=== PATIENT | female | born 1950 | race Caucasian/White ===

== ENCOUNTER 2022-05-31 19:27 | Emergency (ER) | payer MEDICARE, BC ==
[~2022-05-31] VITALS: Ht 154.9 cm; Wt 56.7 kg
--- NOTE | 2022-05-31 21:42 | NUR ---
Patient walked into ER c/o left wrist swelling, redness and pain that started today. Patient states yesterday her cat jumped on her left wrist which caused injury.
[2022-05-31] MEDS ORDERED: METF-495 PO (21:43)
[2022-05-31] MEDS ORDERED: LEVO25TA9 PO (21:43)
--- NOTE | 2022-05-31 21:47 | NUR ---
Dr. Macario at bedside.
[2022-05-31] MEDS ORDERED: AMOXICILLIN-CLAVUL 875-125MG TABLET ONE (22:04)
[2022-05-31] MEDS ORDERED: KETOROLAC TROMETHAMINE 60 MG INJ IM ONE ×2 (22:04→22:15)
[2022-05-31] MEDS ORDERED: AMOXICILLIN-CLAVUL 875-125MG TABLET PO ONE (22:15)
--- NOTE | 2022-05-31 23:19 | NUR ---
Dr. Macario at bedside.
[2022-05-31] MEDS ORDERED: IBUP-1955 PO (23:51)
[2022-05-31] MEDS ORDERED: AMOX-430 PO (23:51)
--- NOTE | 2022-05-31 23:56 | NUR ---
Patient discharged to home in stable condition. Written and verbal after care instructions given. Patient verbalizes understanding of instructions. Stressed follow up or return to ER for worsening s/s. Patient ambulated with steady gait out of ER. Belongings with patient.
[2022-05-31 23:58] VITALS: BP 135/66
== END 2022-05-31 23:58 | disposition home or self-care (01) ==
LOC: ER 19:27
DX: S60.812A Abrasion of left wrist, initial encounter (principal); L03.114 Cellulitis of left upper limb; W55.03XA Scratched by cat, initial encounter; Y92.89 Other specified places as the place of occurrence of the external cause; E11.9 Type 2 diabetes mellitus without complications; Z79.84 Long term (current) use of oral hypoglycemic drugs; M19.032 Primary osteoarthritis, left wrist
CPT/HCPCS: 99283; 73110; 29125; 96372; J1885; A4663